=== PATIENT | female | born 1975 | race Caucasian/White ===

== ENCOUNTER 2024-03-21 08:24 | Outpatient (REF) | payer OTHER, SELFPAY ==
[2024-03-21 09:43] LABS: MANUAL DIFF FLAG NO
[2024-03-21 11:03] LABS: Basophils Absolute Auto 0.1 X10*3/uL (0.0-0.2); Basophils Percent Auto 0.9 % (0-2); Eosinophils Absolute Auto 0.2 X10*3/uL (0.0-0.4); Eosinophils Percent Auto 3.8 % (0-4); Hematocrit 39.2 % (37.0-47.0); Hemoglobin 13.2 g/dl (12.0-16.0); Imm Gran Abs Auto 0.01 X10*3/uL (0.00-0.03); Imm Gran Pct Auto 0.2 % (0.0-0.4); Lymphocytes Absolute Auto 1.9 X10*3/uL (1.2-4.9); Lymphocytes Percent Auto 32.4 % (20-40); Mean Corpuscular HGB Conc 33.7 g/dl (31.0-35.0); Mean Corpuscular Hemoglobin 30.4 pg (27.0-33.0); Mean Corpuscular Volume 90.3 fL (80.0-98.0); Mean Platelet Volume 10.9 fL (9.4-12.3); Monocytes Absolute Auto 0.6 X10*3/uL (0.1-1.2); Monocytes Percent Auto 10.1 % (2-11); Neutrophils Absolute Auto 3.1 x10*3/uL (2.0-8.3); Neutrophils Percent Auto 52.6 % (45-73); Platelet Count 239 X10*3/uL (160-400); Red Blood Count 4.34 X10*6/uL (4.20-5.50); White Blood Count 5.8 X10*3/uL (4.8-10.8)
[2024-03-21 11:15] LABS: Estimated Average Glucose 91 mg/dL; Hemoglobin A1c % 4.8 % (<6.0); Total Hemoglobin (HGBA1C) 3229.1377 umol/L
[2024-03-21 12:48] LABS: Free T4 (Free Thyroxine) 1.09 ng/dL (0.71-1.85); TSH reflex Free T4 1.38 uIU/mL (0.32-4.0)
[2024-03-21 13:06] LABS: Folate 14.8 ng/mL (> or = 4.0); Vitamin B12 598 pg/mL (200-900)
[2024-03-21 13:18] LABS: Alanine Aminotransferase 15 U/L (0-31); Albumin Level 4.2 g/dL (3.5-5.0); Alkaline Phosphatase 52 U/L (39-117); Anion Gap 13 (12-20); Aspartate Amino Transferase 15 U/L (5-31); Bilirubin Total 1.2 mg/dL (0.0-1.0); Blood Urea Nitrogen 15 mg/dL (9-16); Calcium 9.5 mg/dL (8.4-10.2); Carbon Dioxide 22 mmol/L (22-29); Chloride 106 mmol/L (96-108); Cholesterol 201 mg/dL (<200); Estimated Glomerular Filt Rate > 60; Glucose Random 109 mg/dL (60-115); HDL Cholesterol 79 mg/dL (>40); Iron 45 mcg/dL (30-160); LDL Cholesterol Calculated 108 mg/dL (<100); Percent Iron Saturation 14 % (15-50); Potassium 3.6 mmol/L (3.3-5.1); Sodium 137 mmol/L (135-145); Total Iron Binding Capacity 331 mcg/dL (228-428); Triglycerides 70 mg/dL (<150); Unsaturated Iron Binding 286 ug/dL
[2024-03-27 15:53] LABS: Vitamin D 25-OH, D2 <4 ng/mL; Vitamin D 25-OH, D3 26 ng/mL; Vitamin D 25-OH, Total 26 ng/mL (30-100)
== END 2024-03-21 08:25 | disposition home or self-care (01) ==
LOC: HO.LAB 08:24
DX: E61.1 Iron deficiency (principal); R03.0 Elevated blood-pressure reading, without diagnosis of hypertension; Z13.39 Encounter for screening examination for other mental health and behavioral disorders
CPT/HCPCS: 36415; 80053; 80061; 82306; 82607; 82746; 83036; 83540; 84439; 84443; 85025; 96127

== ENCOUNTER 2024-03-21 08:24 | Outpatient (AMB) | payer OTHER, SELFPAY ==
[2024-03-21 08:26] VITALS: BP 142/90; PULSE 69; O2SAT 98; BMI 30.4
--- NOTE | 2024-03-21 08:26 | A.OFFPC_ITS ---
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 Patient states she has a family history of diabetes and elevated blood pressure it is concerned and would like to evaluated for these concerns. Last year she mentioned she had a session with chewing ice and began taking an iron supplement in the cravings for ice went away. She believes she may be iron deficient like to be tested for this as well. She also mentions when vomiting she will occasionally have vasovagal episodes where she will as consciousness. She has not had 1 episode in several months. 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 1. Little interest or pleasure in doing things: not at all 2. Feeling down, depressed, or hopeless: not at all 3. Trouble falling or staying asleep, or sleeping too much: not at all 4. Feeling tired or having little energy: not at all 5. Poor appetite or overeating: not at all 6. Feeling bad about yourself - or that you are a failure or have let yourself or your family down: not at all 7. Trouble concentrating on things, such as reading the newspaper or watching television: not at all 8. Moving or speaking so slowly that other people could have noticed. Or the opposite - being so fidgety or restless that you have been moving around a lot more than usual: not at all 9. Thoughts that you would be better off or of hurting yourself in some way: not at all Total score: 0 Depression Screening Interpretation: Negative Depression Screening Done: Yes 05588 - PHQ-9 Billing: Yes Source: Developed by Drs. Jhonatan Hunter, Lazaar Owens, Milo Abrams and colleagues, with an educational hawa from [employer] Thrive Questionnaire Date Thrive assessed: 03/21/24 I am a: Patient What is your living situation today?: I have a steady place to live Within the past 12 months, did the food you bought not last and you didn't have the money to get more?: Never true Within the past 12 months, did you worry whether your food would run out before you got money to buy more?: Never true Do you have trouble paying for medicines?: No Do you have trouble getting transportation to medical appointments?: No Do you have trouble paying your heating and electricity bill?: No Do you have trouble taking care of your child, family member or friend?: No Do you have trouble with day-to-day activities such as bathing, preparing meals, shopping, managing finances, etc.?: No Are you currently unemployed and looking for a job?: Yes Are you interested in more education?: No Please select the resources that you would like help with: None Currently or been in a relationship where the following occur: No concerns reported THRIVE Score: 0 AUDIT C Alcohol Use Questionnaire (AUDIT-C) 1. How often do you have a drink containing alcohol?: 2-4 times a month 2. How many drinks containing alcohol do you have on a typical day when you are drinking?: 1 or 2 3. How often do you have six or more drinks on one occasion?: Never Total Score: 2 SHAQ-7 AMB Questionnaire SHQA-7 Date SHAQ - 7 assessed: 03/21/24 Feeling nervous, anxious, or on edge: 0 = Not at all Not being able to stop or control worryin = Not at all Worrying too much about different things: 0 = Not at all Trouble relaxin = Not at all Being so restless that it is hard to sit still: 0 = Not at all Becoming easily annoyed or irritable: 0 = Not at all Feeling afraid as if something awful might happen: 0 = Not at all Total SHAQ-7 score (0-4 normal; 5-9 mild; 10-14 moderate; 15-21 severe): 0 Source: Developed by Drs. Jhonatan Hunter, Lazara Owens, Milo Abrams and colleagues, with an educational hawa from [employer] SHAQ-7 Assessment Billing SHAQ-7 Assessment Tool: SHAQ-7 Assessment 91186 Review of Systems Const Denies body aches, Denies fatigue, Denies fever(s), Denies frequent falls, Denies headache(s) and Denies weakness Eyes Reports no additional complaints and Denies change in vision ENT Denies dysphagia, Denies dizziness, Denies facial pain, Denies headache(s), Denies nasal congestion and Denies odynophagia Card Denies chest pain, Denies syncope, Denies irregular heart rhythm, Denies leg edema, Denies lightheadedness and Denies dyspnea Resp Denies cough and Denies dyspnea GI Denies constipation, Denies dysphagia, Denies dyspepsia, Denies diarrhea, Denies nausea, Denies odynophagia and Denies vomiting Denies urinary frequency, Denies dysuria, Denies urinary hesitancy and Denies urinary urgency Musc Denies back pain and Denies myalgias Skin/Breast Reports system reviewed and no additional complaints, except as documented Neuro Denies dizziness, Denies syncope, Denies frequent falls, Denies headache(s) and Denies weakness Psych Reports no additional complaints Endo Denies fatigue Physical exam (Primary Care) Vital Signs: Last Vital Signs Pulse 69 03/21/24 08:26 BP 128/88 03/21/24 09:06 Pulse Ox 98 03/21/24 08:26 Oxygen Delivery Method Room Air 03/21/24 08:26 BMI result Body Mass Index 30.4 Tobacco/Smoking Status: Tobacco use Status Tobacco use date assessed 03/21/24 03/21/24 08:27 Patient Tobacco Use Status Former Tobacco user 03/21/24 08:37 Tobacco use type Cigarette 03/21/24 08:37 e-Cigarette/Vaping Use Never Used 03/21/24 08:37 PHQ-9: PHQ-9 Score PHQ-9: Total score 0 03/21/24 08:39 Depression Screening Interpretation: Negative Thrive Assessment: Date of Thrive Assessment Date Thrive assessed 03/21/24 03/21/24 08:37 Currently or been in a relationship where the following occur: No concerns repor mary Const General: cooperative, healthy appearing, comfortable and no acute distress Orientation/consciousness: patient oriented x3 HENMT Head: Yes normocephalic Ears: hearing grossly normal bilaterally General nose exam: Normal external nose present Eyes General: appearance normal, both eyes and all related structures Conjunctivae: conjunctivae normal Neck Neck: Yes full ROM and Yes no lymphadenopathy Resp Effort & Inspection: normal respiratory effort Auscultation: clear to auscultation bilaterally, no crackles, no rales, no rhonchi and no wheezes Cardio Rate: regular rate Rhythm: regular rhythm Skin General skin exam: no rashes or lesions noted Neuro General: patient oriented x3 Gait exam (Neuro): Normal gait present Extrem General: Yes normal to inspection, Yes full ROM and No edema Psych Affect: normal affect Attitude: cooperative Insight: Good insight present (Psych) Judgement: Good judgement present (Psych) Coding Level of Care Code New Pt Level 4 (72950) Diagnoses Iron deficiency E61.1 Elevated blood pressure reading without diagnosis of hypertension R03.0 Screening for colorectal cancer Z12.11; Z12.12 Screening for breast cancer Z12.39 Additional Codes SHAQ-7 Assessment Billing - SHAQ-7 Assessment Tool: SHAQ-7 Assessment 60150 ([id number]) Assessment & Plan Assessment & Plan (1) Iron deficiency: Code(s): E61.1 - Iron deficiency Category: Medical Plan: In the past patient had a craving for ice and begin taking [id number] iron supplements with improvement in the symptoms. Ordered for updated blood work including iron panel. (2) Elevated blood pressure reading without diagnosis of hypertension: Code(s): R03.0 - Elevated blood-pressure reading, without diagnosis of hypertension Category: Medical Plan: Blood pressure elevated on exam 142/90 and retaken 128/88. Advised patient to t jermaine blood pressure 1 to 2 times per week and follow up in 6 weeks for repeat blood pressure check and annual exam. Encouraged healthy diet and regular exercise. (3) Screening for colorectal cancer: Code(s): Z12.11 - Encounter for screening for malignant neoplasm of colon; Z12.12 - Encounter for screening for malignant neoplasm of rectum Category: Medical Plan: Patient is not up-to-date on colorectal cancer screening and referred for colonoscopy today. (4) Screening for breast cancer: Code(s): Z12.39 - Encounter for other screening for malignant neoplasm of breast Category: Medical Plan: Patient is not up-to-date with breast cancer screening and was referred for mammogram today. Plan Updated blood work ordered and referral placed for gynecology for annual well woman exam and routine Pap smears. Follow up in 6 weeks for annual exam and repeat blood pressure check. This note was constructed using voice recognition software. While every effort has been made to ensure accuracy and community relations director, still areas may have been included sometimes these areas may affect the content or meeting of the given symptoms. Total time spent caring for the patient today was 30 minutes. This includes time spent before the visit reviewing the chart, time spent during the visit, and time spent after the visit and documentation. Orders: Orders Comprehensive Met. Panel Today Z00.00 - Encounter for general adult medical examination without abnormal findings IRON PROFILE Today E61.1 - Iron deficiency Vitamin B12 and Folate Today Z00.00 - Encounter for general adult medical examination without abnormal findings Vitamin D 25-OH (D2 and D3) Today Z00.00 - Encounter for general adult medical examination without abnormal findings Free T4 (Free Thyroxine) Today Z00.00 - Encounter for general adult medical examination without abnormal findings Lipid Panel Today Z00.00 - Encounter for general adult medical examination without abnormal findings MM tomosynthesis screening BI Today Z12.31 - Encounter for screening mammogram for malignant neoplasm of breast Complete Blood Count Auto Diff Today Z00.00 - Encounter for general adult medical examination without abnormal findings TSH reflex Free T4 Today Z00.00 - Encounter for general adult medical examination without abnormal findings Hemoglobin A1c Today Z00.00 - Encounter for general adult medical examination without abnormal findings Referrals Gastroenterology Referral Z12.11 - Encounter for screening for malignant neoplasm of colon 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
[2024-03-21 09:06] VITALS: BP 128/88
== END 2024-03-21 09:15 | disposition home or self-care (01) ==
DX: E61.1 Iron deficiency (principal); R03.0 Elevated blood-pressure reading, without diagnosis of hypertension; Z12.11 Encounter for screening for malignant neoplasm of colon; Z12.12 Encounter for screening for malignant neoplasm of rectum; Z12.39 Encounter for other screening for malignant neoplasm of breast

== ENCOUNTER 2024-03-28 08:54 | Outpatient (REF) | payer OTHER, SELFPAY ==
--- NOTE | ~2024-03-28 | MM_ITS ---
EXAMINATION: MM SCREENING DIGITAL BREAST TOMOSYNTHESIS, BILATERAL CLINICAL INFORMATION: Screening. Asymptomatic. COMPARISON: Mammography: Baseline. TECHNIQUE: Digital breast mammography with tomosynthesis is performed in both the craniocaudal and mediolateral oblique views along with computer-aided detection (CAD). FINDINGS: There are scattered areas of fibroglandular density (ACR BI-RADS breast composition Category b). There are no significant masses, abnormal calcifications, or other abnormalities. MM/MM tomosynthesis screening BI IMPRESSION: No mammographic evidence of malignancy. ASSESSMENT: BI-RADS BI-RADS 1 - Negative RECOMMENDATION: Routine annual mammography screening. 1 year F/U This examination should not preclude the clinical evaluation of a suspicious palpable abnormality. This patient's information was entered into a reminder system with a target due date for their next mammogram. Electronically signed by: Kasey Bansal DO 04/08/2024 12:35 PM EDT
== END 2024-03-28 08:55 | disposition home or self-care (01) ==
LOC: HO.MAMMO 08:54
DX: Z12.31 Encounter for screening mammogram for malignant neoplasm of breast (principal)
CPT/HCPCS: 77063; 77067

== ENCOUNTER → 2024-03-28 09:00 | Outpatient (BNV) | payer OTHER, SELFPAY | PROVIDERS: Visit Provider Internal Medicine | DX: Z12.31 Encounter for screening mammogram for malignant neoplasm of breast (principal) | CPT/HCPCS: 77063; 77067 ==

== ENCOUNTER 2024-05-02 08:29 | Outpatient (AMB) | payer OTHER, SELFPAY ==
[2024-05-02 08:34] VITALS: BP 146/82; PULSE 68; O2SAT 99; BMI 30.6
--- NOTE | 2024-05-02 08:34 | MHC.PC.OV ---
Vital Signs 05/02/24 08:34 05/02/24 09:04 Height 5 ft 2.5 in Weight 170 lb 0.8 oz BMI 30.6 BP 146/82 H 130/88 Blood Pressure Location Lt brachial Lt brachial Position Sitting Sitting Pulse 68 Pulse Source Pulse Oximeter Pulse Oximetry (%) 99 Oxygen Delivery Method Room Air Intake Visit Reasons: Annual Exam Intake Note: Patient is here today for a physical. Radiation Therapy Technologist Required: No Allergies No Known Allergies Allergy (Verified 05/02/24 08:38) Medication List - Last Reconciled 05/02/24 by Kylie Chacon PA-C ferrous sulfate 325 mg PO DAILY multivitamin 1 tab PO DAILY Tobacco use date assessed: 03/21/24 Dental Screening Dental Screen Date: 03/21/24 HPI Annual Exam HPI Details 49-year-old female with past medical history of iron-deficiency last seen March 2024 coming in for annual exam. Mammogram completed 04/08/24 follow up in 1 year. Patient states she is feeling generally well and has no acute concerns today. She has not yet scheduled for colonoscopy with Gastroenterology or an appointment with gynecology for her annual exams but states she will do this in the next few months. [facility] Family History Mother Type 2 diabetes mellitus High blood pressure Stroke Father Type 2 diabetes mellitus High blood pressure Heart attack Sister High blood pressure Social History Housing: House Patient Tobacco Use Status: Former Tobacco user Tobacco use type: Cigarette e-Cigarette/Vaping Use: Never Used service: No Current occupational status: employed Current occupation: [employer] Cognitive needs: No Hearing needs: No Vision needs: No Questionnaire PHQ-9 Over the last 2 weeks, how often have you been bothered by any of the following problems? 1. Little interest or pleasure in doing things: not at all 2. Feeling down, depressed, or hopeless: not at all 3. Trouble falling or staying asleep, or sleeping too much: not at all 4. Feeling tired or having little energy: not at all 5. Poor appetite or overeating: not at all 6. Feeling bad about yourself - or that you are a failure or have let yourself or your family down: not at all 7. Trouble concentrating on things, such as reading the newspaper or watching television: not at all 8. Moving or speaking so slowly that other people could have noticed. Or the opposite - being so fidgety or restless that you have been moving around a lot more than usual: not at all 9. Thoughts that you would be better off or of hurting yourself in some way: not at all Total score: 0 Depression Screening Interpretation: Negative Depression Screening Done: Yes 46260 - PHQ-9 Billing: Yes Source: Developed by Drs. Jhonatan Hunter, Lazara Owens, Milo Abrams and colleagues, with an educational hawa from [employer]. Thrive Questionnaire Date Thrive assessed: 03/21/24 I am a: Patient What is your living situation today?: I have a steady place to live Within the past 12 months, did the food you bought not last and you didn't have the money to get more?: I choose not to answer this question Within the past 12 months, did you worry whether your food would run out before you got money to buy more?: I choose not to answer this question Do you have trouble paying for medicines?: I choose not to answer this question Do you have trouble getting transportation to medical appointments?: No Do you have trouble paying your heating and electricity bill?: No Do you have trouble taking care of your child, family member or friend?: No Do you have trouble with day-to-day activities such as bathing, preparing meals, shopping, managing finances, etc.?: No Are you interested in more education?: No Please select the resources that you would like help with: None Currently or been in a relationship where the following occur: I choose not to answer THRIVE Score: 0 AUDIT C Alcohol Use Questionnaire (AUDIT-C) 1. How often do you have a drink containing alcohol?: Never 3. How often do you have six or more drinks on one occasion?: Never Total Score: 0 SHAQ-7 AMB Questionnaire SHAQ-7 Date SHAQ - 7 assessed: 03/21/24 Feeling nervous, anxious, or on edge: 0 = Not at all Not being able to stop or control worryin = Not at all Worrying too much about different things: 0 = Not at all Trouble relaxin = Not at all Being so restless that it is hard to sit still: 0 = Not at all Becoming easily annoyed or irritable: 0 = Not at all Feeling afraid as if something awful might happen: 0 = Not at all Total SHAQ-7 score (0-4 normal; 5-9 mild; 10-14 moderate; 15-21 severe): 0 Source: Developed by Drs. Jhonatan Hunter, Lazara Owens, Milo Abrams and colleagues, with an educational hawa from [employer]. SHAQ-7 Assessment Billing SHAQ-7 Assessment Tool: SHAQ-7 Assessment 40788 Review of Systems Const Denies body aches, Denies fatigue, Denies fever(s), Denies frequent falls, Denies headache(s) and Denies weakness Eyes Reports no additional complaints and Denies change in vision ENT Denies dizziness, Denies facial pain, Denies headache(s) and Denies nasal congestion Card Denies chest pain, Denies syncope, Denies irregular heart rhythm, Denies leg edema, Denies lightheadedness and Denies dyspnea Resp Denies cough and Denies dyspnea GI Denies abdominal pain, Denies constipation, Denies dyspepsia, Denies diarrhea, Denies nausea and Denies vomiting Denies urinary frequency, Denies dysuria, Denies urinary hesitancy and Denies urinary urgency Musc Denies back pain and Denies myalgias Skin/Breast Reports system reviewed and no additional complaints, except as documented Neuro Denies dizziness, Denies syncope, Denies frequent falls, Denies headache(s) and Denies weakness Psych Reports no additional complaints Endo Denies fatigue Physical exam (Primary Care) Vital Signs: Last Vital Signs Pulse 68 05/02/24 08:34 BP 130/88 05/02/24 09:04 Pulse Ox 99 05/02/24 08:34 Oxygen Delivery Method Room Air 05/02/24 08:34 BMI result Body Mass Index 30.6 Tobacco/Smoking Status: Tobacco use Status Tobacco use date assessed 03/21/24 05/02/24 08:38 Patient Tobacco Use Status Former Tobacco user 05/02/24 08:38 Tobacco use type Cigarette 05/02/24 08:38 e-Cigarette/Vaping Use Never Used 05/02/24 08:38 PHQ-9: PHQ-9 Score PHQ-9: Total score 0 05/02/24 08:43 Depression Screening Interpretation: Negative Thrive Assessment: Date of Thrive Assessment Date Thrive assessed 03/21/24 05/02/24 08:38 Currently or been in a relationship where the following occur: I choose not to answer Const General: cooperative, healthy appearing, comfortable and no acute distress Orientation/consciousness: patient oriented x3 HENMT Head: Yes normocephalic Ears: hearing grossly normal bilaterally, external ears normal, TM's normal bilaterally and EAC's normal General nose exam: Normal external nose present Face and sinus: Yes normal facial exam and Yes sinuses nontender Mouth: Normal oral and palatal mucosa present and tongue normal Throat: Yes posterior oropharynx normal Eyes General: appearance normal, both eyes and all related structures Conjunctivae: conjunctivae normal Pupils: Equal, round and reactive pupils present EOM: EOMs intact bilaterally and No Nystagmus present Neck Neck: Yes normal visual inspection, Yes full ROM and Yes no lymphadenopathy Chest Chest palpation & inspection: normal inspection of the chest Resp Effort & Inspection: normal respiratory effort Auscultation: clear to auscultation bilaterally, no crackles, no rales, no rhonchi, no wheezes and breath sounds present Cardio Rate: regular rate Rhythm: regular rhythm Peripheral pulses: radial pulses present and dorsalis pedis present GI Inspection: Yes normal to inspection and No Abdominal wall edema Palpation (GI): Soft to palpation, not firm and nontender Auscultation: normal bowel sounds Rectal Exam - Female: deferred General: Yes no CVA tenderness Back/Spine/Pelvis Back: no CVA tenderness Skin General skin exam: no rashes or lesions noted Neuro General: patient oriented x3 Cranial nerves: Yes Equal, round and reactive pupils present, Yes Midline tongue present, Yes Ability to bilaterally elevate shoulders present and No Nystagmus present Gait exam (Neuro): Normal gait present Extrem General: Yes normal to inspection, Yes full ROM, No no pedal edema and No edema Psych Speech and movement: Normal speech and movement present Affect: normal affect Insight: Good insight present (Psych) Judgement: Good judgement present (Psych) Coding Level of Care Code Est Pt Prev Care 40-64y(24732) Diagnoses Iron deficiency E61.1 Annual physical exam Z00.00 Elevated blood pressure reading without diagnosis of hypertension R03.0 Screening for colorectal cancer Z12.11; Z12.12 Screening for breast cancer Z12.39 Additional Codes SHAQ-7 Assessment Billing - SHAQ-7 Assessment Tool: SHAQ-7 Assessment 21813 ([id number]) PHQ-9 - 93692 - PHQ-9 Billing: Yes ([id number]) Assessment & Plan Assessment & Plan (1) Iron deficiency: Code(s): E61.1 - Iron deficiency Category: Medical Plan: Blood work within normal limits. Advised patient to continue to take iron supplement daily. (2) Annual physical exam: Code(s): Z00.00 - Encounter for general adult medical examination without abnormal findings Category: Medical Plan: Patient is not up-to-date on all routine screenings for her age. Advised patient to follow up with GI for colonoscopy screening and with gynecology for annual Pap smears. Mammogram is up-to-date follow up in 1 year. Blood work is up-to-date. Follow up in 1 year or sooner if new problems arise. (3) Elevated blood pressure reading without diagnosis of hypertension: Code(s): R03.0 - Elevated blood-pressure reading, without diagnosis of hypertension Category: Medical Plan: Blood pressure initially elevated and normal when retaken 130/88. Advised patient to avoid salt intake and encouraged healthy diet and regular exercise. (4) Screening for colorectal cancer: Code(s): Z12.11 - Encounter for screening for malignant neoplasm of colon; Z12.12 - Encounter for screening for malignant neoplasm of rectum Category: Medical Plan: Advised to follow up with GI. (5) Screening for breast cancer: Code(s): Z12.39 - Encounter for other screening for malignant neoplasm of breast Category: Medical Plan: Mammogram up-to-date follow up in 1 year. Plan This note was constructed using voice recognition software. While every effort has been made to ensure accuracy and supervisor electronics testing, still areas may have been included sometimes these areas may affect the content or meeting of the given symptoms. Total time spent caring for the patient today was 30 minutes. This includes time spent before the visit reviewing the chart, time spent during the visit, and time spent after the visit and documentation. Orders: Referrals Optometry Referral H54.7 - Unspecified visual loss
[2024-05-02 09:04] VITALS: BP 130/88
== END 2024-05-02 09:15 | disposition home or self-care (01) ==
DX: E61.1 Iron deficiency (principal); Z00.00 Encounter for general adult medical examination without abnormal findings; R03.0 Elevated blood-pressure reading, without diagnosis of hypertension; Z12.11 Encounter for screening for malignant neoplasm of colon; Z12.12 Encounter for screening for malignant neoplasm of rectum; Z12.39 Encounter for other screening for malignant neoplasm of breast

== ENCOUNTER → 2024-05-02 08:29 | Outpatient (BNVA) | payer OTHER, SELFPAY | DX: Z00.00 Encounter for general adult medical examination without abnormal findings (principal); E61.1 Iron deficiency; R03.0 Elevated blood-pressure reading, without diagnosis of hypertension; H54.7 Unspecified visual loss | CPT/HCPCS: 96127 ==

== ENCOUNTER 2025-05-04 08:33 | Outpatient (REF) | payer OTHER, SELFPAY ==
[2025-05-04 09:40] LABS: MANUAL DIFF FLAG NO
[2025-05-04 10:27] LABS: Alanine Aminotransferase 26 U/L (0-31); Albumin Level 4.7 g/dL (3.5-5.0); Alkaline Phosphatase 71 U/L (39-117); Anion Gap 11 (12-20); Aspartate Amino Transferase 26 U/L (5-31); Blood Urea Nitrogen 13 mg/dL (9-16); Calcium 9.3 mg/dL (8.4-10.2); Carbon Dioxide 24 mmol/L (22-29); Chloride 109 mmol/L (96-108); Cholesterol 185 mg/dL (<200); Estimated Glomerular Filt Rate > 60; HDL Cholesterol 68 mg/dL (>40); Iron 37 mcg/dL (30-160); Percent Iron Saturation 11 % (15-50); Potassium 3.7 mmol/L (3.3-5.1); Sodium 140 mmol/L (135-145); Total Iron Binding Capacity 333 mcg/dL (228-428); Total Protein 7.3 g/dL (6.5-8.0); Triglycerides 68 mg/dL (<150); Unsaturated Iron Binding 296 ug/dL
[2025-05-04 10:29] LABS: Hematocrit 43.6 % (37.0-47.0); Hemoglobin 14.3 g/dl (12.0-16.0); Imm Gran Abs Auto 0.01 X10*3/uL (0.00-0.03); Imm Gran Pct Auto 0.2 % (0.0-0.4); Lymphocytes Absolute Auto 1.9 X10*3/uL (1.2-4.9); Mean Corpuscular HGB Conc 32.8 g/dl (31.0-35.0); Mean Corpuscular Hemoglobin 29.6 pg (27.0-33.0); Mean Corpuscular Volume 90.3 fL (80.0-98.0); NRBC Abs Auto 0.000 X10*3/uL (0.0-0.012); NRBC Pct Auto 0.0 /100WBC (0.0-0.2); Platelet Count 213 X10*3/uL (160-400); Red Blood Count 4.83 X10*6/uL (4.20-5.50); White Blood Count 5.6 X10*3/uL (4.8-10.8)
[2025-05-04 10:51] LABS: Folate 14.7 ng/mL (> or = 4.0); Vitamin B12 705 pg/mL (200-900)
== END 2025-05-04 08:34 | disposition home or self-care (01) ==
LOC: HO.LAB 08:33
DX: Z00.00 Encounter for general adult medical examination without abnormal findings (principal); Z13.220 Encounter for screening for lipoid disorders; Z13.0 Encounter for screening for diseases of the blood and blood-forming organs and certain disorders involving the immune mechanism; Z13.29 Encounter for screening for other suspected endocrine disorder; Z13.21 Encounter for screening for nutritional disorder; Z13.1 Encounter for screening for diabetes mellitus; E61.1 Iron deficiency; R03.0 Elevated blood-pressure reading, without diagnosis of hypertension; Z12.11 Encounter for screening for malignant neoplasm of colon; Z12.12 Encounter for screening for malignant neoplasm of rectum; E55.9 Vitamin D deficiency, unspecified; H54.7 Unspecified visual loss; Z79.899 Other long term (current) drug therapy
CPT/HCPCS: 36415; 80053; 80061; 82306; 82607; 82746; 83036; 83540; 84443; 85025; 96127

== ENCOUNTER 2025-05-04 08:33 | Outpatient (AMB) | payer OTHER, SELFPAY ==
--- NOTE | 2025-05-04 08:36 | A.OFFPC_ITS ---
Vital Signs 05/04/25 08:37 05/04/25 09:03 Height 5 ft 2 in Weight 178 lb 2 oz BMI 32.6 BP 140/100 H 130/94 H Blood Pressure Location Rt brachial Lt brachial Position Sitting Sitting Pulse 81 Pulse Source Pulse Oximeter Temp 98.2 F Temp Source Temporal Artery Scan Pulse Oximetry (%) 99 Oxygen Delivery Method Room Air Intake Visit Reasons: Annual Exam Intake Note: Patient is here today for a physical. Scale Balancer Required: No Allergies No Known Allergies Allergy (Verified 05/04/25 08:45) Medication List - Last Reconciled 05/04/25 by Kylie Chacon PA-C ferrous sulfate 325 mg PO DAILY multivitamin 1 tab PO DAILY Tobacco use date assessed: 03/21/24 Dental Screening Dental Screen Date: 05/04/25 Did you have a dental visit in the last 12 months?: Yes Did you have a dental problem in the last 6 months where you did not have access to dental care?: No Was dental information given to patient?: Patient has dentist HPI Annual Exam HPI Details 50-year-old female with past medical his tory of iron-deficiency last seen 04/2024 coming in for annual exam. Presenting for an annual wellness exam. The patient has been concerned about high blood pressure, as two of her sisters are on blood pressure medication. Her blood pressure is usually high upon arrival at the clinic but tends to decrease upon re-measurement. She reports being in perimenopause, with irregular periods and spotting, which she notes is similar to her older sisters' experiences. The patient has not yet undergone a scheduled colonoscopy, Pap smear, or mammogram for this year. 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 1. Little interest or pleasure in doing things: not at all 2. Feeling down, depressed, or hopeless: not at all 3. Trouble falling or staying asleep, or sleeping too much: not at all 4. Feeling tired or having little energy: not at all 5. Poor appetite or overeating: not at all 6. Feeling bad about yourself - or that you are a failure or have let yourself or your family down: not at all 7. Trouble concentrating on things, such as reading the newspaper or watching television: not at all 8. Moving or speaking so slowly that other people could have noticed. Or the opposite - being so fidgety or restless that you have been moving around a lot more than usual: not at all 9. Thoughts that you would be better off or of hurting yourself in some way: not at all Total score: 0 Depression Screening Interpretation: Negative Depression Screening Done: Yes 74460 - PHQ-9 Billing: Yes Source: Developed by Drs. Jhonatan Hunter, Lazara Owens, Milo Abrams and colleagues, with an educational hawa from [employer]. Thrive Questionnaire Date Thrive assessed: 05/04/25 I am a: Patient What is your living situation today?: I have a steady place to live Within the past 12 months, did the food you bought not last and you didn't have the money to get more?: Never true Within the past 12 months, did you worry whether your food would run out before you got money to buy more?: Never true Do you have trouble paying for medicines?: No Do you have trouble getting transportation to medical appointments?: No Do you have trouble paying your heating and electricity bill?: No Do you have trouble taking care of your child, family member or friend?: No Do you have trouble with day-to-day activities such as bathing, preparing meals, shopping, managing finances, etc.?: No Are you currently unemployed and looking for a job?: No Are you interested in more education?: No Please select the resources that you would like help with: None Currently or been in a relationship where the following occur: No concerns reported THRIVE Score: 0 AUDIT C Alcohol Use Questionnaire (AUDIT-C) 1. How often do you have a drink containing alcohol?: 2-4 times a month 2. How many drinks containing alcohol do you have on a typical day when you are drinking?: 3 or 4 3. How often do you have six or more drinks on one occasion?: Less than monthly Total Score: 4 Score Reviewed/Action Taken: Yes SHAQ-7 AMB Questionnaire SHAQ-7 Date SHAQ - 7 assessed: 05/04/25 Feeling nervous, anxious, or on edge: 0 = Not at all Not being able to stop or control worryin = Not at all Worrying too much about different things: 0 = Not at all Trouble relaxin = Not at all Being so restless that it is hard to sit still: 0 = Not at all Becoming easily annoyed or irritable: 0 = Not at all Feeling afraid as if something awful might happen: 0 = Not at all Total SHAQ-7 score (0-4 normal; 5-9 mild; 10-14 moderate; 15-21 severe): 0 Source: Developed by Drs. Jhonatan Hunter, Lazara Owens, Milo Abrams and colleagues, with an educational hawa from [employer]. Review of Systems Const Denies body aches, Denies fatigue, Denies fever(s), Denies frequent falls, Denies headache(s) and Denies weakness Eyes Reports no additional complaints and Denies change in vision ENT Denies dysphagia, Denies dizziness, Denies facial pain, Denies headache(s), Denies nasal congestion and Denies odynophagia Card Denies chest pain, Denies syncope, Denies leg edema, Denies lightheadedness and Denies dyspnea Resp Denies cough and Denies dyspnea GI Denies abdominal pain, Denies constipation, Denies dysphagia, Denies dyspepsia, Denies diarrhea, Denies nausea, Denies odynophagia and Denies vomiting Denies urinary frequency, Denies dysuria, Denies urinary hesitancy and Denies urinary urgency Musc Denies back pain and Denies myalgias Skin/Breast Reports system reviewed and no additional complaints, except as documented Neuro Denies dizziness, Denies syncope, Denies frequent falls, Denies headache(s) and Denies weakness Psych Reports no additional complaints Endo Denies fatigue Physical exam (Primary Care) Vital Signs: Last Vital Signs Temp 98.2 F 05/04/25 08:37 Pulse 81 05/04/25 08:37 BP 130/94 H 05/04/25 09:03 Pulse Ox 99 05/04/25 08:37 Oxygen Delivery Method Room Air 05/04/25 08:37 BMI result Body Mass Index 32.6 Tobacco/Smoking Status: Tobacco use Status Tobacco use date assessed 03/21/24 05/04/25 08:39 Patient Tobacco Use Status Former Tobacco user 05/04/25 08:39 Tobacco use type Cigarette 05/04/25 08:39 e-Cigarette/Vaping Use Never Used 05/04/25 08:39 PHQ-9: PHQ-9 Score PHQ-9: Total score 0 05/04/25 08:39 Depression Screening Interpretation: Negative Thrive Assessment: Date of Thrive Assessment Date Thrive assessed 05/04/25 05/04/25 08:39 Currently or been in a relationship where the following occur: No concerns reported Const General: cooperative, healthy appearing, comfortable and no acute distress Orientation/consciousness: patient oriented x3 HENMT Head: Yes normocephalic Ears: hearing grossly normal bilaterally, external ears normal, TM's normal bilaterally and EAC's normal General nose exam: Normal external nose present Face and sinus: Yes normal facial exam and Yes sinuses nontender Mouth: Normal oral and palatal mucosa present and tongue normal Throat: Yes posterior oropharynx normal Eyes General: appearance normal, both eyes and all related structures Conjunctivae: conjunctivae normal Pupils: Equal, round and reactive pupils present EOM: EOMs intact bilaterally and No Nystagmus present Neck Neck: Yes normal visual inspection, Yes full ROM and Yes no lymphadenopathy Chest Chest palpation & inspection: normal inspection of the chest Resp Effort & Inspection: normal respiratory effort Auscultation: clear to auscultation bilaterally, no crackles, no rales, no rhonchi, no wheezes and breath sounds present Cardio Rate: regular rate Rhythm: regular rhythm Peripheral pulses: radial pulses present and dorsalis pedis present GI Inspection: Yes normal to inspection and No Abdominal wall edema Palpation (GI): Soft to palpation, not firm and nontender Auscultation: normal bowel sounds Rectal Exam - Female: deferred General: Yes no CVA tenderness Back/Spine/Pelvis Back: no CVA tenderness Skin General skin exam: no rashes or lesions noted Neuro General: patient oriented x3 Cranial nerves: Yes Equal, round and reactive pupils present, Yes Midline tongue present, Yes Ability to bilaterally elevate shoulders present and No Nystagmus present Gait exam (Neuro): Normal gait present Extrem General: Yes normal to inspection, Yes full ROM, No no pedal edema and No edema Psych Speech and movement: Normal speech and movement present Affect: normal affect Insight: Good insight present (Psych) Judgement: Good judgement present (Psych) Coding Level of Care Code Est Pt Prev Care 40-64y(40664) Diagnoses Annual physical exam Z00.00 Elevated blood pressure reading without diagnosis of hypertension R03.0 Screening for colorectal cancer Z12.11; Z12.12 Iron deficiency E61.1 Vitamin D deficiency E55.9 Decreased vision H54.7 Additional Codes PHQ-9 - 59869 - PHQ-9 Billing: Yes ([id number]) Assessment & Plan Assessment & Plan (1) Annual physical exam: Code(s): Z00.00 - Encounter for general adult medical examination without abnormal findings Category: Medical (2) Elevated blood pressure reading without diagnosis of hypertension: Code(s): R03.0 - Elevated blood-pressure reading, without diagnosis of hypertension Category: Medical Plan: The patient's initial blood pressure was 140/100 mmHg, and a recheck showed 130/94 mmHg. Given her history of elevated in-office readings and a family history of hypertension, the plan is to monitor her blood pressure at home to rule out white coat hypertension. A prescription for a home blood pressure cuff was sent to a medical supply store. The patient was educated on proper measurement technique and provided with a blood pressure log. Lifestyle modifications, including a low-salt diet, reduced caffeine intake, and regular exercise, were recommended. A follow-up nurse visit is scheduled in two weeks to review the home readings and check the cuff's calibration. If blood pressure remains elevated, initiating medication will be considered. (3) Screening for colorectal cancer: Code(s): Z12.11 - Encounter for screening for malignant neoplasm of colon; Z12.12 - Encounter for screening for malignant neoplasm of rectum Category: Medical Plan: Referral for Cologuard placed today (4) Iron deficiency: Code(s): E61.1 - Iron deficiency Category: Medical Plan: Ordered for updated blood work. (5) Vitamin D deficiency: Code(s): E55.9 - Vitamin D deficiency, unspecified Category: Medical Plan: Ordered for updated blood work. (6) Decreased vision: Code(s): H54.7 - Unspecified visual loss Category: Medical Plan: The patient reports worsening near vision and has started using reading glasses. Options for more affordable eye exams, such as at retail stores like [employer], were discussed. Plan This note was constructed using voice recognition software. While every effort has been made to ensure accuracy and supreme court judge, still areas may have been included sometimes these areas may affect the content or meeting of the given symptoms. Total time spent caring for the patient today was 30 minutes. This includes time spent before the visit reviewing the chart, time spent during the visit, and time spent after the visit and documentation. Patient was informed and verbally consented to the use of an ambient scribe for clinic note documentation during this visit. Orders: Orders Vitamin D 25-OH Total Today Z13.21 - Encounter for screening for nutritional disorder Lipid Panel Today Z13.220 - Encounter for screening for lipoid disorders Comprehensive Met. Panel Today Z00.00 - Encounter for general adult medical examination without abnormal findings Hemoglobin A1c Today Z13.1 - Encounter for screening for diabetes mellitus Complete Blood Count Auto Diff Today E61.1 - Iron deficiency, Z13.0 - Encounter for screening for diseases of the blood and blood-forming organs and certain disorders involving the immune mechanism IRON PROFILE Today E61.1 - Iron deficiency TSH reflex Free T4 Today Z13.29 - Encounter for screening for other suspected endocrine disorder Vitamin B12 and Folate Today Z13.21 - Encounter for screening for nutritional disorder Referrals Cologuard Test Z12.11 - Encounter for screening for malignant neoplasm of colon, Z12.12 - Encounter for screening for malignant neoplasm of rectum SENIOR PREMIUM AUDITOR Referral Z12.4 - Encounter for screening for malignant neoplasm of cervix Medications: New blood pressure monitor As directed; to check BP daily 1 ea 0RF R03.0 - Elevated blood-pressure reading, without diagnosis of hypertension
[2025-05-04 08:37] VITALS: BP 140/100; PULSE 81; TEMP 36.8; O2SAT 99; BMI 32.6
[2025-05-04 09:03] VITALS: BP 130/94
== END 2025-05-04 09:21 | disposition home or self-care (01) ==
LOC: HO.HMCH 08:34
DX: Z00.00 Encounter for general adult medical examination without abnormal findings (principal); R03.0 Elevated blood-pressure reading, without diagnosis of hypertension; Z12.11 Encounter for screening for malignant neoplasm of colon; Z12.12 Encounter for screening for malignant neoplasm of rectum; E61.1 Iron deficiency; E55.9 Vitamin D deficiency, unspecified; H54.7 Unspecified visual loss

== ENCOUNTER 2025-05-13 09:22 | Outpatient (AMB) | payer OTHER, SELFPAY ==
[2025-05-13 09:28] VITALS: BP 148/120; TEMP 36.7
--- NOTE | 2025-05-13 09:28 | MHC.PC.OV ---
Vital Signs 05/13/25 09:28 05/13/25 09:49 Height 5 ft 2 in BP 148/120 H 140/102 H Blood Pressure Location Lt brachial Lt brachial Position Sitting Sitting Pulse Source Pulse Oximeter Temp 98.1 F Temp Source Temporal Artery Scan Oxygen Delivery Method Room Air Intake Visit Reasons: High BP Intake Note: Patient is here today for a physical. 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 Required: No Allergies No Known Allergies Allergy (Verified 05/13/25 09:39) Medication List - Last Reconciled 05/13/25 by Kylie Chacon PA-C blood pressure monitor As directed; to check BP daily ferrous sulfate 325 mg PO DAILY multivitamin 1 tab PO DAILY Tobacco use date assessed: 05/13/25 Dental Screening Dental Screen Date: 05/04/25 Did you have a dental visit in the last 12 months?: Yes Did you have a dental problem in the last 6 months where you did not have access to dental care?: No Was dental information given to patient?: Patient has dentist HPI High BP HPI Details 50-year-old female with past medical history of iron-deficiency last seen 04/2025 coming in for follow up on BP. Presenting for evaluation of elevated home blood pressure readings. The patient reports having elevated blood pressure readings every day on a home monitor and is concerned about having a stroke. Home readings have included 140/96, 140/90, and 163/102 after coffee. The patient denies any associated chest pain, headaches, vision changes or SOB. The patient has a strong family history of cardiovascular disease; the patient's mother after multiple strokes, and the patient's father, who also , had heart attacks and a quadruple bypass surgery, with his first heart attack occurring at age 35. The patient follows a low-salt, Mediterranean-style diet and participates in Pilates twice a week. 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 1. Little interest or pleasure in doing things: not at all 2. Feeling down, depressed, or hopeless: not at all 3. Trouble falling or staying asleep, or sleeping too much: not at all 4. Feeling tired or having little energy: not at all 5. Poor appetite or overeating: not at all 6. Feeling bad about yourself - or that you are a failure or have let yourself or your family down: not at all 7. Trouble concentrating on things, such as reading the newspaper or watching television: not at all 8. Moving or speaking so slowly that other people could have noticed. Or the opposite - being so fidgety or restless that you have been moving around a lot more than usual: not at all 9. Thoughts that you would be better off or of hurting yourself in some way: not at all Total score: 0 Depression Screening Interpretation: Negative Depression Screening Done: Yes 63768 - PHQ-9 Billing: Yes Source: Developed by Drs. Jhonatan Hunter, Lazara Owens, Milo Abrams and colleagues, with an educational hawa from [employer]. Thrive Questionnaire Date Thrive assessed: 05/04/25 I am a: Patient What is your living situation today?: I have a steady place to live Within the past 12 months, did the food you bought not last and you didn't have the money to get more?: Never true Within the past 12 months, did you worry whether your food would run out before you got money to buy more?: Never true Do you have trouble paying for medicines?: No Do you have trouble getting transportation to medical appointments?: No Do you have trouble paying your heating and electricity bill?: No Do you have trouble taking care of your child, family member or friend?: No Do you have trouble with day-to-day activities such as bathing, preparing meals, shopping, managing finances, etc.?: No Are you currently unemployed and looking for a job?: No Are you interested in more education?: No Please select the resources that you would like help with: None Currently or been in a relationship where the following occur: No concerns reported THRIVE Score: 0 AUDIT C Alcohol Use Questionnaire (AUDIT-C) 1. How often do you have a drink containing alcohol?: 2-4 times a month 2. How many drinks containing alcohol do you have on a typical day when you are drinking?: 3 or 4 3. How often do you have six or more drinks on one occasion?: Less than monthly Total Score: 4 Score Reviewed/Action Taken: Yes SHAQ-7 AMB Questionnaire SHAQ-7 Date SHAQ - 7 assessed: 05/04/25 Feeling nervous, anxious, or on edge: 0 = Not at all Not being able to stop or control worryin = Not at all Worrying too much about different things: 0 = Not at all Trouble relaxin = Not at all Being so restless that it is hard to sit still: 0 = Not at all Becoming easily annoyed or irritable: 0 = Not at all Feeling afraid as if something awful might happen: 0 = Not at all Total SHAQ-7 score (0-4 normal; 5-9 mild; 10-14 moderate; 15-21 severe): 0 Source: Developed by Drs. Jhonatan Hunter, Lazara Owens, Milo Abrams and colleagues, with an educational hawa from [employer]. Review of Systems Const Denies body aches, Denies chills, Denies fever(s) and Denies headache(s) Eyes Denies blurry vision, Denies change in vision and Denies diplopia ENT Denies dizziness and Denies headache(s) Card Denies chest pain, Denies syncope, Denies lightheadedness and Denies dyspnea Resp Denies dyspnea GI Denies nausea and Denies vomiting Neuro Denies dizziness, Denies syncope and Denies headache(s) Physical exam (Primary Care) Vital Signs: Last Vital Signs Temp 98.1 F 05/13/25 09:28 BP 140/102 H 05/13/25 09:49 Oxygen Delivery Method Room Air 05/13/25 09:28 Tobacco/Smoking Status: Tobacco use Status Tobacco use date assessed 05/13/25 05/13/25 09:34 Patient Tobacco Use Status Former Tobacco user 05/13/25 09:34 Tobacco use type Cigarette 05/13/25 09:34 e-Cigarette/Vaping Use Never Used 05/13/25 09:34 PHQ-9: PHQ-9 Score PHQ-9: Total score 0 05/13/25 09:45 Depression Screening Interpretation: Negative Thrive Assessment: Date of Thrive Assessment Date Thrive assessed 05/04/25 05/13/25 09:34 Currently or been in a relationship where the following occur: No concerns reported Const General: cooperative, healthy appearing, comfortable and no acute distress Orientation/consciousness: patient oriented x3 HENMT Head: Yes normocephalic Ears: hearing grossly normal bilaterally General nose exam: Normal external nose present Eyes General: appearance normal, both eyes and all related structures Conjunctivae: conjunctivae normal Neck Neck: Yes full ROM and Yes no lymphadenopathy Resp Effort & Inspection: normal respiratory effort Auscultation: clear to auscultation bilaterally, no crackles, no rales, no rhonchi and no wheezes Cardio Rate: regular rate Rhythm: regular rhythm Skin General skin exam: no rashes or lesions noted Neuro General: patient oriented x3 Gait exam (Neuro): Normal gait present Extrem General: Yes normal to inspection, Yes full ROM and No edema Psych Affect: normal affect Attitude: cooperative Insight: Good insight present (Psych) Judgement: Good judgement present (Psych) Coding Level of Care Code Est Pt Level 3 (72864) Diagnoses Hypertension I10 Additional Codes PHQ-9 - 07345 - PHQ-9 Billing: Yes ([id number]) Assessment & Plan Assessment & Plan (1) Hypertension: Code(s): I10 - Essential (primary) hypertension Category: Medical Plan: The patient's persistently elevated blood pressure, with an in-office reading of 140/102 mmHg, warrants initiation of antihypertensive therapy. Will start amlodipine 5 mg daily. The patient was educated on the potential side effect of leg swelling, with instructions to report if this occurs. The patient was advised to continue home blood pressure monitoring, ensuring checks are done at least two hours after taking the medication. The patient will keep the follow-up nurse appointment on the for a blood pressure check and return in two months for re-evaluation. Plan This note was constructed using voice recognition software. While every effort has been made to ensure accuracy and sealing machine operator, still areas may have been included sometimes these areas may affect the content or meeting of the given symptoms. Total time spent caring for the patient today was 20 minutes. This includes time spent before the visit reviewing the chart, time spent during the visit, and time spent after the visit and documentation. Patient was informed and verbally consented to the use of an ambient scribe for clinic note documentation during this visit. Medications: New amlodipine 5 mg PO DAILY 90 tabs 0RF
[2025-05-13 09:49] VITALS: BP 140/102
--- OUTSIDE RECORDS SUMMARY | 2025-05-13 10:25 | XMS_ITS | Clinical Summary ---
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 Name Role Phone Unavailable Primary Care Provider Unavailabl e Social History Tobacco Use Types Packs/Day Years Used Date Smoking Tobacco: Never Assessed Comments Unknown Sex and Gender Information Value Date Recorded Sex Assigned at Not on file Legal Sex Female 12:04 AM EDT Gender Identity Not on file Sexual Orientation Not on file Plan of Treatment Health Maintenance Due Date Last Done Comments Hepatitis C Virus Screening 1977 HIV Screening 1990 DTaP/Tdap/Td Vaccines (1 - Tdap) 01/19/1996 Hepatitis B Vaccines (1 of 3 - 19+ 3-dose series) 01/19/1996 COVID-19 Vaccine ( - 2023-2 5 season) 2025 Pneumococcal Vaccine: Pediat isaac (0-5 Years) and At-Risk Patients (6 to 49 Years) Aged Out No longer eligible b ased on patient's age to complete this topic
--- OUTSIDE RECORDS SUMMARY | 2025-05-13 10:26 | XMS_ITS ---
Author Name [facility] Organization Unknown Care Team Organization Name Specialty Phone Email Start Date End Da te [employer] 09/02/2021 0 02/04/2024
--- OUTSIDE RECORDS SUMMARY | 2025-05-13 10:26 | XMS_ITS | Clinical Summary ---
Author Organization [facility] Address [address] [place] [id number] Phone Care Team Providers Care Security Strategist Name Role Phone Melba Dowell MD Primary Care Provider Social History Tobacco Use Types Packs/Day Years Used Date Smoking Tobacco: Never Assessed Education Answer Date Recorded Are you interested in more education? Not on black e 10/13/2022 Are you concerned about learning? Not on file 10/13/2022 No 10/13/2022 No 10/13/2022 Comments Unknown Sex and Gender Information Value Date Recorded Sex Assigned at Not on file Legal Sex Female 9:26 PM EDT Gender Identity Not on file Sexual Orientation Not on file Last Filed Vital Signs Vital Sign Reading Time Taken Comments Blood Pressure 110/72 09/15/2015 11:22 AM EDT Pulse 88 09/15/2015 11:22 AM EDT Temperature - - Respiratory Rate - - Oxygen Saturation - - Inhaled Oxygen Concentration - - Weight 76.2 kg (168 lb) 09/15/2015 11:22 AM EDT Height 157.5 cm (5' 2 ) 09/15/2015 11:22 AM EDT Body Mass Index 30.73 09/15/2015 11:22 AM EDT Plan of Treatment Not on file Medical Devices Not on file Insurance [employer] [facility] [facility] Address: [facility] [id number] [place] [id number] Care Teams Security Strategist Relationship Specialty Start Date End Date Melba Dowell MD [address] [place] [phone] [email or web address] PCP - General Family Medicine 07/06/23 Additional Source Comments The information contained in this document represents components of the legal health record. It is not the complete legal health record.[facility]
== END 2025-05-13 09:59 | disposition home or self-care (01) ==
LOC: HO.HMCH 09:23
DX: I10 Essential (primary) hypertension (principal)

== ENCOUNTER → 2025-05-13 09:22 | Outpatient (BNVA) | payer OTHER, SELFPAY | DX: I10 Essential (primary) hypertension (principal) | CPT/HCPCS: 96127 ==